=== PATIENT | male | born 1965 | race Caucasian/White ===

== ENCOUNTER 2020-03-25 14:08 | Emergency (ER) | payer OTHER, SELFPAY ==
--- NOTE | ~2020-03-25 | CT_ITS ---
EXAMINATION: CT abdomen pelvis w con DATE: 03/25/2020 15:32 INDICATION: Flank pain and hematuria TECHNIQUE: Computed tomography (CT) of the abdomen and pelvis was performed with 100 mL Omnipaque-350 intravenous contrast. Automated exposure control and iterative reconstruction technique were employe d. The dose-length product was 531.93 mGy-cm. COMPARISON: 12/07/2017 FINDINGS: Moderate scattered atelectasis at the bilateral lung bases. Heart size is normal. No pericardial or p leural effusion. Cholecystectomy clips the gallbladder fossa. Diffuse hepatic steatosis. Spleen, panc reas and bilateral adrenal glands are normal. 1 mm nonobstructing stone at the upper pole calyx of th e right kidney. Kidneys are otherwise normal with symmetric enhancement and no hydronephrosis. No sto devin seen along the bilateral normal ureters. Bladder is normal. The bowels including the appendix are normal. No free intraperitoneal gas or fluid. Change of bilateral inguinal hernia repairs. No pathol ogically enlarged abdominal or pelvic lymphadenopathy. Mild thoracolumbar spondylosis. IMPRESSION: 1. Nonobstructing 1 mm stone in an upper pole calyx of the right kidney. Reviewed, dictated and finalized at location A. CIAL REPORTER
[2020-03-25 14:11] VITALS: BP 155/100; PULSE 99; RESP 18; TEMP 37.6; O2SAT 96
[2020-03-25 14:37] LABS: Basophils Percent Auto 0.4 % (0.2-1.2); Eosinophils Percent Auto 0.2 % (0-4.4); Hematocrit 45.4 % (42.0-52.0); Hemoglobin 15.3 g/dL (14.0-18.0); Immature Granulocyte Absolute 0.02 K/mm3 (0.00-0.031); Immature Granulocyte Percent A 0.4 % (0-0.5); Lymphocytes Absolute Auto 1.56 K/mm3 (0.9-3.2); Lymphocytes Percent Auto 27.7 % (18.3-44.2); Mean Corpuscular HGB Conc 33.7 g/dl (32-36); Mean Corpuscular Hemoglobin 30.2 pg (26-34); Mean Corpuscular Volume 89.7 fl (80-100); Mean Platelet Volume 9.7 fl (7.4-10.4); Monocytes Absolute Auto 0.5 K/mm3 (0.1-0.6); Monocytes Percent Auto 8.3 % (2.6-8.5); Neutrophils Absolute Auto 3.6 K/mm3 (1.3-6.7); Platelet Count Result 163 k/mm3 (150-375); Red Blood Count 5.06 M/mm3 (4.6-6.20); White Blood Count 5.6 K/mm3 (4.5-10.0)
[2020-03-25 14:45] LABS: Alanine Aminotransferase 56 U/L (4-50); Albumin Level 4.1 g/dL (3.5-5.1); Alkaline Phosphatase 68 U/L (38-126); Anion Gap 9 mmol/L (8-16); Aspartate Amino Transferase 56 U/L (17-59); Bilirubin,Total 0.4 mg/dL (0.2-1.3); Blood Urea Nitrogen 13 mg/dL (9-20); Calcium 8.8 mg/dL (8.4-10.2); Carbon Dioxide 28 mmol/L (22-30); Chloride 99 mmol/L (98-107); Estimated CRCL calculation 64 ml/min; Estimated Glomerular Filt Rate > 60; Glucose 130 mg/dL (75-110); Lipase 175 U/L (23-300); Potassium 4.3 mmol/L (3.4-5.0); Sodium 136 mmol/L (137-145)
[2020-03-25 14:49] LABS: Add Urine Microscopic? YES; Appearance Urine Clear (Clear); Bilirubin Urine Negative (Negative); Blood Urine Negative (Negative); Color Urine Yellow (Yellow); Glucose Urine UA Negative (Negative); Ketones Urine Negative (Negative); Leukocyte Esterase Ur Negative LEU/UL (Negative); Mucus Urine Rare /lpf; Nitrate Urine Negative (Negative); Protein Urine Negative (Negative); Specific Grav Ur 1.016 (1.001-1.035); Squamous Epithelial Cell Urine Rare /hpf (Few); Urobilinogen Urine Negative mg/dL (<2.0); WBC Urine 0-3 /hpf
--- NOTE | 2020-03-25 14:59 | ED.ABDPAIN ---
HPI - Abdominal Pain General Chief Complaint: Abdominal Pain Stated Complaint: back pain, nausea Time Seen by Provider: 03/25/20 14:28 Source: patient Mode of arrival: ambulatory Limitations: no limitations History of Present Illness HPI narrative: This is a 55-year-old male that presents the emergency department for flank pain x1 week. Reports cold symptoms, fever and chills. Reports he has had myalgias on his lower back area. Also reports nausea. Denies vomiting, dysuria, or hematuria. Related Data Home Medications Medication Instructions Recorded Confirmed No Home Medications 03/25/20 03/25/20 Allergies Allergy/AdvReac Type Severity Reaction Status Date / Time No Known Allergies Allergy Unknown Verified 03/25/20 14:14 Review of Systems Review of Systems: Narrative: CONSTITUTIONAL: Reports fever, chills ENT: Reports rhinorrhea, congestion CARDIOVASCULAR: Denies chest pain RESPIRATORY: Reports cough. Denies dyspnea. GASTROINTESTINAL: Reports nausea. Denies abdominal pain, vomiting, or diarrhea. GENITOURINARY: Denies dysuria or hematuria. MUSCULOSKELETAL: Reports back pain, and myalgia. NEUROLOGIC: Denies numbness, or weakness. All systems reviewed & are unremarkable except as noted in HPI and below PMFSH Past Medical History Medical History (Updated 03/25/20 @ 16:20 by Carmen Snider PA-C) Kidney stone Surgical History Surgical History (Updated 03/25/20 @ 15:01 by Carmen Snider PA-C) History of cholecystectomy Family History Family History (Updated 10/05/16 @ 09:18 by DOCTOR UNKNOWN) Other Family history of Alzheimer's disease Family history of kidney disease Social History Social History Smoking status: Never smoker Alcohol intake: current Exam Narrative: Exam Narrative: GENERAL: Well-appearing, well-nourished, and in no acute distress. HEAD: Normocephalic, atraumatic. EYES: EOMI. ENT: Mucous membranes moist. Oropharynx without tonsillar hypertrophy exudate or other lesions. NECK: Supple. No adenopathy or masses. CHEST: Clear to auscultation. No respiratory distress. No wheezes rales or rhonchi HEART: Regular rate and rhythm. No murmur heard. Normal peripheral pulses. ABDOMEN: Soft, nontender, nondistended, normal active bowel sounds. No CVA tenderness EXTREMITIES: Normal range of motion. No edema. SKIN: Warm, dry, no rash. NEURO: No focal deficits. Alert and oriented x3. PSYCH: Normal mood and affect Course Vital Signs Vital signs: Vital Signs Temperature 99.6 F 03/25/20 14:11 Pulse Rate 99 03/25/20 14:11 Respiratory Rate 18 03/25/20 14:11 Blood Pressure 155/100 H 03/25/20 14:11 Pulse Oximetry 96 03/25/20 14:11 Temperature 99.6 F 03/25/20 14:11 Pulse Rate 99 03/25/20 14:11 Respiratory Rate 18 03/25/20 14:11 Blood Pressure 155/100 H 03/25/20 14:11 Pulse Oximetry 96 03/25/20 14:11 MDM - Abdominal Pain MDM Narrative Medical decision making narrative: Patient presents the emergency department for flank pain x1 week. Was also reporting cold symptoms that have now resolved. He is afebrile and nontoxic-appearing. CBC and metabolic panel without concerning findings. Lipase is normal. UA without evidence of infection. CT scan abdomen and pelvis is without acute findings. Patient and family updated on case findings. He is to follow-up with primary care doctor. He was given warnings to return to the ER Lab Data Attestation: I reviewed the patient's lab results. Result diagrams: 03/25/20 14:24 03/25/20 14:24 Labs: Lab Results 03/25/20 03/25/20 03/25/20 Range/Units 14:24 14:24 14:24 WBC 5.6 (4.5-10.0) K/mm3 RBC 5.06 (4.6-6.20) M/mm3 Hgb 15.3 (14.0-18.0) g/dL Hct 45.4 (42.0-52.0) % MCV 89.7 (80-100) fl MCH 30.2 (26-34) pg MCHC 33.7 (32-36) g/dl RDW 13.0 (11.5-14.5) % Plt Count 163 (150-375) k/mm3 MPV 9.7 (7.4-10.4) fl Immature Gran
[2020-03-25] MEDS: SODIUM CHLORIDE 0.9% IV 1,000 ML 999 ML IV CONT (15:14)
[2020-03-25 16:41] VITALS: BP 128/80; PULSE 88; RESP 18; TEMP 36.7; O2SAT 99
== END 2020-03-25 16:42 | disposition home or self-care (01) ==
PROVIDERS: General Practice; Emergency Provider Emergency Medicine; PCP Emergency Medicine
DX: B34.9 Viral infection, unspecified (principal); Z87.442 Personal history of urinary calculi
CPT/HCPCS: 36415; 74177; 80053; 81001; 83690; 85025; 96361; 96374; 99284; J0131; J7030; Q9967

== ENCOUNTER 2020-04-25 09:33 | Outpatient (CLI) | payer BC, OTHER, SELFPAY ==
--- NOTE | ~2020-04-25 | XR_ITS ---
EXAMINATION: XR UGIAC w barium swallow EXAM DATE: 04/25/2020 10:30 INDICATION: Reflux without esophagitis. Dysphagia. Cough. TECHNIQUE: Standard single and double contrast barium esophagram and upper GI examination was perform ed. The DAP for this procedure was 1.7 Gycm2. Comparison is made to prior examination from upper GI examination 06/25/2013. Correlation is made to CT abdomen 03/25/2020. FINDINGS: The pharynx is symmetric and without evidence of mass lesion or mucosal irregularity. Ther e is no esophageal stricture, diverticulum or mass identified. Gastroesophageal junction is normal i n appearance. Reflux was not demonstrated during this examination. The stomach has a normal appearance without evidence of mass lesion, ulceration or filling defect. T here is normal rugal fold pattern. The duodenum and duodenal sweep are normal in appearance. IMPRESSION: Normal exam. Reviewed, dictated and finalized at location A. ICE TRAINER IMPRESSION: Normal exam.
--- NOTE | ~2020-04-25 | XR_ITS ---
EXAMINATION: XR chest 2V EXAM DATE: 04/25/2020 09:56 INDICATION: Dysphagia, cough. GERD without esophagitis. TECHNIQUE: Frontal and lateral projections of the chest obtained and reviewed. Comparison is made to prior examination from 05/15/2019. FINDINGS: The lungs are clear. There are no pleural effusions. The cardiomediastinal silhouette is within normal limits. There is no pneumothorax suspected. The bones and soft tissues are unremarkab le. There are cholecystectomy clips. IMPRESSION: Unremarkable chest x-ray exam. Reviewed, dictated and finalized at location A. T CATCHER
== END 2020-04-25 09:34 | disposition home or self-care (01) ==
PROVIDERS: PCP Emergency Medicine; Visit Provider Emergency Medicine
DX: R05 Cough (principal); K21.9 Gastro-esophageal reflux disease without esophagitis; R11.0 Nausea; R13.10 Dysphagia, unspecified
CPT/HCPCS: 71046; 74246